=== PATIENT | male | born 1940 ===

== ENCOUNTER 2024-09-05 10:10 | Outpatient (CLI) | payer MEDICARE, BC, SELFPAY | END 2024-09-05 10:11 | disposition home or self-care (01) | LOC: INJ CL 10:16 | PROVIDERS: PCP Internal Medicine; Visit Provider Family Medicine | DX: M17.12 Unilateral primary osteoarthritis, left knee (principal); M25.562 Pain in left knee | CPT/HCPCS: 64454 ==

== ENCOUNTER 2025-05-08 14:04 | Outpatient (CLI) | payer MEDICARE, BC, SELFPAY | END 2025-05-08 14:05 | disposition home or self-care (01) | PROVIDERS: PCP Internal Medicine; Visit Provider Family Medicine | DX: M17.12 Unilateral primary osteoarthritis, left knee (principal); M25.562 Pain in left knee; G89.29 Other chronic pain | CPT/HCPCS: 64624; J2250; J3010 ==